=== PATIENT | male | born 1940 | race Caucasian/White ===

== ENCOUNTER 2017-06-03 20:31 | Emergency (ER) | payer OTHER, BC ==
[~2017-06-03] VITALS: Ht 180.3 cm; Wt 142.6 kg
[~2017-06-03 20:31] MED LIST: Ascorbic Acid,Ester- PO; Buspar PO; Cardizem CD,Cartia X PO; Dulcolax PO; Dulcolax PR; Duricef PO; Ecotrin PO; Flomax PO; Folvite PO; K-Dur PO; Lasix PO; Miralax, Glycolax PO; Percocet 5/325,Endoc PO; Pradaxa PO; Protonix PO; Senokot S,Pericolace PO; Theragran PO; Tylenol Extra Streng PO
[2017-06-03 22:06] LABS: CHLORIDE 105 mEq/L (99-109); POTASSIUM 4.2 mEq/L (3.7-5.4); SODIUM 136 mEq/L (136-147)
[2017-06-03 22:08] LABS: GLUCOSE 113 mg/dL (70-99)
[2017-06-03 22:10] LABS: ANION GAP 7 MEQ/L (2-14)
[2017-06-03 22:12] LABS: GFR ESTIMATE (CALCULATED) > 59 mL/min/
[2017-06-03 22:13] LABS: UREA NITROGEN (BUN) 11 mg/dL (9-23)
[2017-06-04] MEDS ORDERED: KEFLEX500 MG PO (01:34)
[2017-06-04 01:50] VITALS: BP 132/99
== END 2017-06-04 02:17 | disposition home or self-care (01) ==
LOC: EME → EDBD 20:31 → TRA 20:31
PROVIDERS: Emergency Medicine
DX: S11.81XA Laceration without foreign body of other specified part of neck, initial encounter (principal); V00.811A Fall from moving wheelchair (powered), initial encounter; S01.552A Open bite of oral cavity, initial encounter; X58.XXXA Exposure to other specified factors, initial encounter; T79.7XXA Traumatic subcutaneous emphysema, initial encounter; I48.91 Unspecified atrial fibrillation; I71.2 Thoracic aortic aneurysm, without rupture; I10 Essential (primary) hypertension; K21.9 Gastro-esophageal reflux disease without esophagitis; Z79.01 Long term (current) use of anticoagulants; Z79.82 Long term (current) use of aspirin
CPT/HCPCS: 70496; 70498; 80048; 99281; 99285; J7030